=== PATIENT | female | born 2000 | race African-American/Black ===

== ENCOUNTER 2021-02-10 10:26 | Emergency (ER) | payer OTHER, SELFPAY ==
[2021-02-10 10:37] VITALS: BP 127/70; PULSE 80; RESP 18; TEMP 36.3; O2SAT 100
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
== END 2021-02-10 11:15 | disposition home or self-care (01) ==
PROVIDERS: Emergency Provider Emergency Medicine; PCP Pediatrics
DX: S46.911A Strain of unspecified muscle, fascia and tendon at shoulder and upper arm level, right arm, initial encounter (principal); V48.5XXA Car driver injured in noncollision transport accident in traffic accident, initial encounter; R01.1 Cardiac murmur, unspecified
CPT/HCPCS: 99213; G0463